=== PATIENT | male | born 1955 | race Caucasian/White ===

== ENCOUNTER 2019-08-10 06:13 | Day surgery (SDC) | payer OTHER ==
[~2019-08-10 06:13] MED LIST: SOD CHLORIDE 0.9% 1,000 ML IV
[2019-08-10 07:42] LABS: ADD MAN DIFF? NO
[2019-08-10 07:46] LABS: BASOPHIL # 0.1 10^3/ul (0.0-0.1); BASOPHILS % 0.7 % (0.0-2.0); EOSINOPHILS # 0.5 10^3/ul (0.0-0.5); EOSINOPHILS % 7.4 % (0.0-7.0); HEMATOCRIT 43.8 % (42.0-52.0); HEMOGLOBIN 14.3 g/dl (14.0-18.0); LYMPHOCYTES # 1.4 10^3/ul (0.8-2.9); LYMPHOCYTES % 19.9 % (15.0-51.0); MEAN CORPUSCULAR HEMOGLOBIN 29.7 pg (29.0-33.0); MEAN CORPUSCULAR HGB CONC 32.6 g/dl (32.0-37.0); MEAN CORPUSCULAR VOLUME 90.9 fl (82.0-101.0); MEAN PLATELET VOLUME 9.3 fl (7.4-10.4); MONOCYTE # 0.5 10^3/ul (0.3-0.9); MONOCYTES % 7.3 % (0.0-11.0); NEUTROPHIL # 4.4 10^3/ul (1.6-7.5); NEUTROPHILS % 64.4 % (39.0-77.0); PLATELET COUNT 196 10^3/UL (140-415); RED BLOOD COUNT 4.82 10^6/ul (4.70-6.10)
[2019-08-10 07:46] LABS: WHITE BLOOD COUNT 6.9 10^3/ul (4.8-10.8)
[2019-08-10 08:06] LABS: INR 1.07; PARTIAL THROMBOPLASTIN TIME 31.5 Sec (23.0-35.0); PT RATIO 1.1
[2019-08-10 08:41] LABS: ALANINE AMINOTRANSFERASE 36 IU/L (13-69); ALBUMIN 4.3 g/dl (3.3-4.9); ALBUMIN/GLOBULIN RATIO 1.38; ALKALINE PHOSPHATASE 73 IU/L (42-121); ANION GAP 5 (5-13); ASPARTATE AMINO TRANSFERASE 29 IU/L (15-46); BILIRUBIN,INDIRECT 0.7 mg/dl (0-1.1); BILIRUBIN,TOTAL 0.7 mg/dl (0.2-1.3); BLOOD UREA NITROGEN 13 mg/dl (7-20); CARBON DIOXIDE 32 mmol/L (21-31); CHLORIDE 104 mmol/L (97-110); CHOLESTEROL 123 mg/dl (100-200); CREATININE 0.94 mg/dl (0.61-1.24); Estimated GFR > 60 mL/min (>60); GLUCOSE 111 mg/dl (70-220); HDL CHOLESTEROL 40 mg/dl (30-78); LDL CHOLESTEROL,CALCULATED 69 mg/dl; POTASSIUM 4.7 mmol/L (3.5-5.1); SODIUM 141 mmol/L (135-144); TOTAL PROTEIN 7.4 g/dl (6.1-8.1); TRIGLYCERIDES 71 mg/dl (0-149)
[2019-08-10] MEDS ORDERED: VERAPAMIL 5 MG INJ (08:55)
[2019-08-10] MEDS ORDERED: LIDOCAINE 1% (MDV) 20 ML INJ (08:55)
[2019-08-10] MEDS ORDERED: IODIXANOL LOCM 100 ML BTL (08:55)
[2019-08-10] MEDS ORDERED: HEPARIN 1000 UNITS/ML 10 ML INJ (08:55)
[2019-08-10] MEDS ORDERED: NITROGLYCERIN (IC) 100 MCG/ML INJ (08:58)
[2019-08-10] MEDS ORDERED: FENTAnyl 50 MCG/ML VIAL (09:56)
[2019-08-10] MEDS ORDERED: MIDAZOLAM 1 MG/ML 2 ML INJ (09:56)
[2019-08-10] MEDS ORDERED: SOD CHLORIDE 0.9% 1,000 ML IV (10:52)
[2019-08-10] MEDS ORDERED: AL HYDROX/MG HYDROX/SIMETH 30 ML CUP PO (11:00)
[2019-08-10] MEDS ORDERED: ACETAMINOPHEN 325 MG TAB PO (11:00)
[2019-08-10] MEDS ORDERED: ONDANSETRON 4 MG INJ IV (11:00)
== END 2019-08-10 14:00 | disposition home or self-care (01) ==
LOC: SDS 06:13
DX: I25.10 Atherosclerotic heart disease of native coronary artery without angina pectoris (principal); I35.0 Nonrheumatic aortic (valve) stenosis; E11.9 Type 2 diabetes mellitus without complications; I10 Essential (primary) hypertension
CPT/HCPCS: 80053; 80061; 82962; 85025; 85610; 85730; 93005; 93454